=== PATIENT | female | born 1960 | race American Indian/Alaskan Native ===

== ENCOUNTER 2017-11-20 11:04 | Day surgery (SDC) | payer MEDICARE ==
--- NOTE | 2017-11-20 13:13 | Anesthesia Consultation ---
Anesthesia Consult and Med Hx Date of service: 11/20/17 - Airway Anesthetic Teeth Evaluation: Good ROM Head & Neck: Adequate Mental/Hyoid Distance: Adequate Mallampati Class: Class I Intubation Access Assessment: Good - Pulmonary Exam CTA: Yes - Cardiac Exam Cardiac Exam: RRR - Pre-Operative Health Status ASA Pre-Surgery Classification: ASA3 Proposed Anesthetic Plan: MAC - Pulmonary Hx Sleep Apnea: Yes - Cardiovascular System Hx Hypertension: Yes - Endocrine Hx Non-Insulin Dependent Diabetes: Yes (pre dm, no meds ) Hx Hypothyroidism: Yes - Other Systems Hx Obesity: Yes
--- NOTE | 2017-11-20 13:13 | Anesthesia Day of Surgery ---
Anesthesia Day of Surgery - Day of Surgery Patient Examined: Yes Patient H&P Reviewed: Yes Patient is NPO: Yes
[2017-11-20] MEDS ORDERED: DIPRIVAN 10 MG/ML IV ONE (13:18)
[2017-11-20] MEDS: NACL 0.9% 1000 ML 1,000 ML IV SCH ×2 (13:49→15:53)
--- NOTE | 2017-11-20 15:07 | Discharge Summary ---
Providers - Providers Attending physician: ADAN JUNIOR Exam - Constitutional Vitals: Temp Pulse Resp BP Pulse Ox 98.2 F 81 20 186/80 97 11/20/17 13:43 11/20/17 13:43 11/20/17 13:43 11/20/17 13:43 11/20/17 13:43 Plan Follow up with: GOSIA BLOCK MD [Other] - 7 Days
[2017-11-20] MEDS ORDERED: HURRICAINE ONE 20% TOPICAL SPRAY MM ×2 (15:30→19:21)
[2017-11-20] MEDS ORDERED: ZOFRAN ONE (15:59)
[2017-11-20 16:24] VITALS: BP 155/69
[2017-11-20] MEDS ORDERED: HURRICAINE ONE 20% TOPICAL SPRAY MM NR (20:00)
== END 2017-11-20 11:05 | disposition home or self-care (01) ==
LOC: GIO 11:04
PROVIDERS: ATTEND Specialist
DX: K44.9 Diaphragmatic hernia without obstruction or gangrene (principal); K27.9 Peptic ulcer, site unspecified, unspecified as acute or chronic, without hemorrhage or perforation; I10 Essential (primary) hypertension; J45.909 Unspecified asthma, uncomplicated; G47.33 Obstructive sleep apnea (adult) (pediatric); E66.01 Morbid (severe) obesity due to excess calories; E03.9 Hypothyroidism, unspecified; E11.9 Type 2 diabetes mellitus without complications; Z68.43 Body mass index [BMI] 50.0-59.9, adult; Z99.89 Dependence on other enabling machines and devices; Z98.890 Other specified postprocedural states; Z88.6 Allergy status to analgesic agent
CPT/HCPCS: 43235; 82962; J2405; J2704; J7030